=== PATIENT | male | born 1995 | race Caucasian/White ===

== ENCOUNTER 2017-03-07 08:41 | Emergency (ER) | payer OTHER ==
--- NOTE | 2017-03-09 08:41 | EDPHY ---
General Narrative: I performed a medical screening exam and the patient was determined to have no apparent emergency medical condition. We offered to perform complete evaluation however the patient declined and prefers to go elsewhere for further evaluation. - History Smoking Status: Former smoker - Objective Allergies/Adverse Reactions: No Known Allergies Allergy (Verified 06/05/14 12:02) Home Medications: Medication Instructions Recorded VYVSANTANA 06/01/14 oxyCODONE/APAP 5/325 [Percocet 1 tab PO Q2-3PRN PRN #20 tab 06/01/14 5/325] Departure - Departure Disposition: Left Without Being Seen Referrals: Marcellus Anderson MD [Primary Care Provider] - As per Instructions
== END 2017-03-07 08:46 | disposition left against medical advice (07) ==
LOC: CED 08:41
DX: Z53.21 Procedure and treatment not carried out due to patient leaving prior to being seen by health care provider (principal)